=== PATIENT | female | born 1940 | race Caucasian/White ===

== ENCOUNTER 2016-10-03 14:00 | Inpatient (IN) | payer MEDICARE, BC ==
[~2016-10-03] VITALS: Ht 160 cm; Wt 44.7 kg
[2016-10-25] MEDS ORDERED: AMLO5TAB2 PO (09:49)
[2016-10-25] MEDS ORDERED: METO100T PO (09:49)
[2016-10-25] MEDS ORDERED: ASPI-110 PO (09:49)
[2016-10-25] MEDS ORDERED: SIMV40TA PO (09:49)
[2016-10-25] MEDS ORDERED: LISI40TA PO (09:49)
[2016-10-25] MEDS ORDERED: TIMO0.5S30 EACH EYE (09:49)
[2016-10-31] VITALS (8 sets, daily range): BP systolic 108–112; BP diastolic 58–60; PULSE 69–77; RESP 15; TEMP 97.5–97.8; O2SAT 97
[2016-10-31] MEDS ORDERED: CHLORHEXIDINE GLUCONATE 2 % 1 PACK (2 CLOTHS) TOPICAL PRN (12:30)
[2016-10-31] MEDS ORDERED: SODIUM CHLORID 0.9% 500 ML IV PRN (12:30)
[2016-10-31] MEDS ORDERED: INSULIN HUMAN REGULAR 1,000 UNITS/10 ML VIAL SQ PRN (12:30)
[2016-10-31] MEDS ORDERED: POVIDONE IODINE 5% (ANTISEPSIS KIT) 4 APPLICATIONS EACH NARE PRN (12:30)
[2016-10-31] MEDS ORDERED: METOPROLOL TARTRATE 25 MG TAB PO PRN (12:30)
[2016-10-31] MEDS ORDERED: LACTATED RINGER'S 1000 ML IV PRN (12:30)
[2016-10-31] MEDS ORDERED: DEXT 5%-NACL 0.9% 1000 ML INJ 1,000 ML IV SCH (12:45)
[2016-10-31] MEDS ORDERED: ceFAZolin 2 GM PREMIX 50 ML IV SCH (12:45)
[2016-10-31] MEDS ORDERED: METRONIDAZOLE 500 MG/100 ML ISONTONIC SOLN IV SCH (12:45)
--- NOTE | 2016-10-31 13:00 | PD.HP.UP ---
H&P Update Note The Pre-Admit History and Physical Examination regarding the above named patient was reviewed (including, but not limited to, vital signs, heart, lungs, co-morbid conditions), and upon re-examination it is noted that: the patient's condition has not significantly changed since the last examination. Radha Eric MD Oct 31, 2016 13:00
[2016-10-31] MEDS ORDERED: BUPIVACAINE HCL PF 0.25% 30 ML VIAL ONE (13:33)
[2016-10-31] MEDS ORDERED: PROPOFOL 200 MG/20 ML AMP IV ONE (13:53)
[2016-10-31] MEDS ORDERED: ONDANSETRON HCL 4 MG/2 ML VIAL IV PUSH ONE (13:53)
[2016-10-31] MEDS ORDERED: ePHEDrine/NS 25 MG/5 ML SYR IV ONE (13:53)
[2016-10-31] MEDS ORDERED: LACTATED RINGER'S 1000 ML INJ 1,000 ML IV ONE (13:54)
[2016-10-31] MEDS ORDERED: fentaNYL CITRATE 250 MCG/5 ML AMP ONE (14:02)
[2016-10-31] MEDS ORDERED: SUGAMMADEX SODIUM 200 MG/2 ML VIAL IV PUSH ONE ×2 (15:20)
[2016-10-31] MEDS ORDERED: POTASSIUM CHLOR 40 MEQ PREMIX 100 ML IV PRN (15:45)
[2016-10-31] MEDS ORDERED: diphenhydrAMINE HCL 50 MG/ML VIAL IV PRN (15:45)
[2016-10-31] MEDS ORDERED: SODIUM CHLORIDE 0.9% FLUSH 5 ML FLUSH IVF PRN (15:45)
[2016-10-31] MEDS ORDERED: ACETAMINOPHEN 325 MG TAB PO PRN (15:45)
[2016-10-31] MEDS ORDERED: Post-op Orders (for Pharmacy) MISC XX ONE (15:45)
[2016-10-31] MEDS ORDERED: ENALAPRILAT 2.5 MG/2 ML VIAL IV PRN (15:45)
[2016-10-31] MEDS ORDERED: BENZOCAINE 6 MG/MENTHOL 10 MG LOZENGE BUCCAL PRN (15:45)
[2016-10-31] MEDS: PCA - TOTAL MG MORPHINE DELIVERED PER SHIFT SCH ×2 (15:45→22:00)
[2016-10-31] MEDS ORDERED: ACETAMINOPHEN/HYDROcodone 325 MG/5 MG TAB PO PRN ×2 (15:45)
[2016-10-31] MEDS ORDERED: NALOXONE HCL 0.4 MG/ML AMP IV PRN (15:45)
[2016-10-31] MEDS ORDERED: ENALAPRILAT 1.25 MG/ML VIAL IV PRN (15:45)
[2016-10-31] MEDS ORDERED: POTASSIUM CHLOR 20 MEQ PREMIX 100 ML IV PRN (15:45)
[2016-10-31] MEDS ORDERED: MORPHINE SULFATE 30 MG/30 ML PCA IV SCH (15:45)
[2016-10-31] MEDS ORDERED: ONDANSETRON HCL 4 MG/2 ML VIAL IV PRN (15:45)
[2016-10-31] MEDS ORDERED: DO NOT ADM ANY ANTICOAGULANT DRUGS PRN (15:50)
[2016-10-31] MEDS: D5-NS + KCL 20 MEQ INJ 1,000 ML IV SCH ×2 (16:09→22:35)
[2016-10-31] MEDS: KETOROLAC TROMETHAMINE 30 MG/ML (IVP) VIAL IVP SCH ×2 (16:28→22:35)
[2016-10-31 16:30] LABS: AUTOMATED NEUTROPHIL # 7.3 TH/MM3 (1.8-7.7); BASOPHIL % 0.2 % (0.0-2.0); EOSINOPHIL # 0.1 TH/MM3 (0-0.4); EOSINOPHIL % 0.6 % (0.0-4.0); HEMATOCRIT 37.6 % (35.0-46.0); HEMO FLAGS DIFF FINAL; LYMPH % 17.7 % (9.0-44.0); LYMPHOCYTE # 1.8 TH/MM3 (1.0-4.8); MEAN CELL VOLUME 93.9 FL (80.0-100.0); MEAN CORPUSCULAR HEMOGLOBIN 31.4 PG (27.0-34.0); MEAN CORPUSCULAR HGB CONC 33.4 % (32.0-36.0); MONO % 7.7 % (0.0-8.0); NEUT % 73.8 % (16.0-70.0); PLATELET COUNT 261 TH/MM3 (150-450); RED BLOOD COUNT 4.01 MIL/MM3 (4.00-5.30)
[2016-10-31 16:49] LABS: POTASSIUM 3.2 MEQ/L (3.5-5.1)
[2016-10-31] MEDS: SODIUM CHLORIDE 0.9% FLUSH 5 ML FLUSH IVF SCH (20:18)
[2016-10-31] MEDS: metroNIDAZOLE 500 MG INJ 100 ML IV SCH (22:35)
[2016-11-01] VITALS (19 sets, daily range): BP systolic 111–127; BP diastolic 54–66; PULSE 63–77; RESP 15–19; TEMP 96.3–99; O2SAT 95–97
[2016-11-01] MEDS: KETOROLAC TROMETHAMINE 30 MG/ML (IVP) VIAL IVP SCH ×4 (05:26→23:23)
[2016-11-01] MEDS: D5-NS + KCL 20 MEQ INJ 1,000 ML IV SCH ×2 (05:27→11:51)
[2016-11-01] MEDS: metroNIDAZOLE 500 MG INJ 100 ML IV SCH ×2 (05:27→13:59)
[2016-11-01] MEDS: PCA - TOTAL MG MORPHINE DELIVERED PER SHIFT SCH ×3 (06:00→20:19)
[2016-11-01 08:41] LABS: AUTOMATED NEUTROPHIL # 9.8 TH/MM3 (1.8-7.7); BASOPHIL % 0.2 % (0.0-2.0); EOSINOPHIL % 0.2 % (0.0-4.0); HEMATOCRIT 34.3 % (35.0-46.0); HEMO FLAGS DIFF FINAL; LYMPH % 6.7 % (9.0-44.0); LYMPHOCYTE # 0.8 TH/MM3 (1.0-4.8); MEAN CELL VOLUME 92.5 FL (80.0-100.0); MEAN CORPUSCULAR HEMOGLOBIN 31.7 PG (27.0-34.0); MEAN CORPUSCULAR HGB CONC 34.3 % (32.0-36.0); MONO % 7.1 % (0.0-8.0); NEUT % 85.8 % (16.0-70.0); PLATELET COUNT 274 TH/MM3 (150-450); RED BLOOD COUNT 3.71 MIL/MM3 (4.00-5.30); RED CELL DISTRIBUTION WIDTH 12.2 % (11.6-17.2); WHITE BLOOD COUNT 11.4 TH/MM3 (4.0-11.0)
[2016-11-01] MEDS ORDERED: NON-FORMULARY DRUG (Lisinopril 40 MG) PO SCH (09:00)
[2016-11-01] MEDS: SODIUM CHLORIDE 0.9% FLUSH 5 ML FLUSH IVF SCH ×2 (09:00→20:18)
[2016-11-01 09:18] LABS: BICARBONATE 25.2 MEQ/L (21.0-32.0); POTASSIUM 3.6 MEQ/L (3.5-5.1)
[2016-11-01] MEDS: LISINOPRIL 20 MG TAB PO SCH (09:23)
[2016-11-01] MEDS: amLODIPine BESYLATE 5 MG TAB PO SCH (09:23)
[2016-11-01] MEDS: PANTOPRAZOLE SODIUM 40 MG VIAL IVP SCH (09:23)
[2016-11-01] MEDS: METOPROLOL TARTRATE 100 MG TAB PO SCH (09:23)
--- NOTE | 2016-11-01 12:02 | MP ---
cc: DAVE FRYE M.D. DATE OF SURGERY: 10/31/2016 PREOPERATIVE DIAGNOSIS: Rectal prolapse. POSTOPERATIVE DIAGNOSIS Rectal prolapse. PROCEDURE Laparoscopic lysis of adhesions. Laparoscopic assisted rectopexy SURGEON Hernesto [employer] OUT: [place] ANESTHESIA General per ET tube ESTIMATED BLOOD LOSS 50 cc OPERATIVE INDICATIONS The patient is a 76-year-old female with symptomatic rectal prolapse. OPERATIVE COURSE: The patient was brought to the operating room and placed in the supine position. After induction of general anesthesia, all bony prominences were padded. The skin of the anterior abdominal wall was then prepped and draped in the usual sterile fashion. A site was then chosen for the camera, being located 2 cm to the right and 2 cm below the umbilicus. A #5 port was placed at this location under direct vision, using the laparoscope. CO2 insufflation was then undertaken and a brief abdominal survey was performed, with nothing noted that would preclude the laparoscopic approach. A second trocar was placed just inside the right anterior superior iliac spine, also a #5 , and a third trocar was placed mirror image to the first, on the left side. The patient was hydroplaned with head down and was immediately noted to have some adhesions of the small bowel to the vaginal cuff. These were carefully dissected free using electrocautery, and additionally some of the small bowel was dissected free from the sigmoid colon. Eventually I was able to retract the small bowel up and out of the pelvis and had a nice view of the very redundant sigmoid colon. Her rectosigmoid was then gently retracted to the left and the peritoneum was scored and opened. The presacral space was then entered. Dissection was continued from the sacrum down posteriorly down to the mid rectum and up and out the right side and somewhat to the left. The attachments of the rectum to the left pelvic sidewall wall were then dissected free, and the peritoneum was opened on that side, meeting our previous dissection. With this, we had a nice dissection of the rectum with mesentery on each side, to bring up to the sacral promontory. The sacral promontory was cleared of tissue, using electrocautery. Grasping the mesentery on either side of the rectum, the rectum came up nicely to the sacral promontory without tension but with a good, nice firm rectopexy. Hemostasis was obtained with electrocautery, and we moved on to the open portion of the procedure. A 12-15 cm transverse incision was made in the suprapubic area ,along her previous incision, and using electrocautery, dissection was carried down to the fascia of the anterior abdominal wall. The medial fibers of the rectus abdominis muscle were then divided, and the posterior fascia/peritoneum was then divided the length of the skin incision. Some additional fibrofatty tissues overlying the sacrum were dissected free. Starting on left side, a 2-0 Prolene suture was placed through the peritoneum/mesentery to the left of the rectum, then through the sacral promontory, and back out through the peritoneum. This was held but not sutured. A second suture of 2-0 Vicryl was placed just slightly more distal on the peritoneum in the same fashion. These were held but not tied. Mirror image sutures were then placed on the right side of the rectal mesentery and through the sacral promontory as well. These were gently pulled down tight and the rectum lay nicely without tension but with a good amount of structure. All sutures were then secured, and the rectum lay in a nice orientation without tension and without any evidence of prolapse. All dissection beds were examined with no sign of any significant bleeding. The posterior fascia at the suprapubic incision was closed in running fashion using #1 PDS and the anterior fascia was closed in running fashion using #1 PDS. The wounds were then copiously irrigated with warm normal saline. The skin at the suprapubic incision was closed in a running Subcuticular fashion using 3-0 Vicryl, and the trocar sites were closed in an interrupted subcuticular fashion , using 3-0 Vicryl. Steri-Strips and sterile dressing was applied. All sponge, needle and instrument counts were correct and the patient was returned to the post anesthesia care unit in stable condition. MD ALPESH Dumont/darrell /3:39 PM /11:44 AM EMILY
--- NOTE | 2016-11-01 14:37 | HHI.PR ---
Subjective Remarks POD#1 s/p lap assisted rectopexy seems comfortable Objective Vital Signs Date Time Temp Pulse Resp B/P Pulse Ox O2 Delivery O2 Flow Rate FiO2 11/01/16 14:00 65 11/01/16 14:00 19 11/01/16 13:16 19 11/01/16 13:00 68 11/01/16 12:00 63 11/01/16 11:00 68 11/01/16 11:00 98.5 71 16 127/64 96 11/01/16 10:00 74 11/01/16 09:00 74 11/01/16 08:00 95 21 11/01/16 08:00 98.9 75 19 121/66 97 11/01/16 08:00 72 11/01/16 07:00 75 11/01/16 06:00 74 11/01/16 06:00 15 11/01/16 05:00 72 11/01/16 04:05 70 11/01/16 03:11 97.5 77 15 111/58 97 11/01/16 03:11 72 11/01/16 02:00 72 11/01/16 01:30 75 11/01/16 00:00 70 10/31/16 23:27 97.5 77 15 108/60 97 10/31/16 23:00 70 10/31/16 22:00 72 10/31/16 22:00 14 10/31/16 21:00 70 10/31/16 20:51 97 21 10/31/16 20:00 69 10/31/16 19:21 97.8 69 15 112/58 97 10/31/16 19:00 73 10/31/16 17:45 97.2 72 14 117/59 96 Room Air 10/31/16 17:00 75 13 128/61 100 Room Air 10/31/16 16:45 68 13 124/59 100 Nasal Cannula 2 10/31/16 16:30 97.3 67 13 124/62 100 Nasal Cannula 2 10/31/16 16:22 15 10/31/16 16:15 68 13 125/61 100 Nasal Cannula 2 10/31/16 16:00 68 12 125/60 100 Nasal Cannula 2 10/31/16 15:48 96.8 72 21 127/59 100 Nasal Cannula 2 I/O 6/5/17 10/31/16 10/31/16 11/01/16 11/01/16 11/01/16 07:00 15:00 23:00 07:00 15:00 23:00 Intake Total 1322 ml 2555 ml Output Total 945 ml 925 ml Balance 377 ml 1630 ml Intake Oral 0 ml 480 ml IV Total 322 ml 2075 ml Other 1000 ml Output Urine Total 925 ml 925 ml Estimated Blood Loss 20 ml # Bowel Movements 0 Result Diagram: 11/01/16 0642 11/01/16 06 Objective Remarks Abdomen soft, nondistended Dressing c/d/i Assessment and Plan Assessment and Plan Advance diet Mobilize D/C Radha Mccracken MD Nov 01, 2016 14:37
[2016-11-01] MEDS: HEPARIN SODIUM - SQ 10,000 UNITS/ML VIAL SQ SCH (15:21)
[2016-11-02] VITALS: BP 125/58; PULSE 73; RESP 16; TEMP 97.3; O2SAT 95
[2016-11-02] MEDS: HEPARIN SODIUM - SQ 10,000 UNITS/ML VIAL SQ SCH (01:48)
[2016-11-02] MEDS: D5-NS + KCL 20 MEQ INJ 1,000 ML IV SCH (01:48)
[2016-11-02] MEDS: PCA - TOTAL MG MORPHINE DELIVERED PER SHIFT SCH (05:43)
[2016-11-02] MEDS: KETOROLAC TROMETHAMINE 30 MG/ML (IVP) VIAL IVP SCH (05:43)
[2016-11-02 05:57] LABS: AUTOMATED NEUTROPHIL # 4.9 TH/MM3 (1.8-7.7); BASOPHIL % 0.4 % (0.0-2.0); EOSINOPHIL # 0.1 TH/MM3 (0-0.4); EOSINOPHIL % 0.9 % (0.0-4.0); HEMATOCRIT 28.6 % (35.0-46.0); HEMO FLAGS DIFF FINAL; LYMPH % 22.7 % (9.0-44.0); LYMPHOCYTE # 1.6 TH/MM3 (1.0-4.8); MEAN CELL VOLUME 91.8 FL (80.0-100.0); MEAN CORPUSCULAR HEMOGLOBIN 31.8 PG (27.0-34.0); MEAN CORPUSCULAR HGB CONC 34.7 % (32.0-36.0); MONO % 8.2 % (0.0-8.0); NEUT % 67.8 % (16.0-70.0); PLATELET COUNT 241 TH/MM3 (150-450); RED BLOOD COUNT 3.12 MIL/MM3 (4.00-5.30); WHITE BLOOD COUNT 7.3 TH/MM3 (4.0-11.0)
[2016-11-02 06:23] LABS: BICARBONATE 27.6 MEQ/L (21.0-32.0); POTASSIUM 3.6 MEQ/L (3.5-5.1)
[2016-11-02] MEDS: amLODIPine BESYLATE 5 MG TAB PO SCH (07:29)
[2016-11-02] MEDS: SODIUM CHLORIDE 0.9% FLUSH 5 ML FLUSH IVF SCH (07:30)
[2016-11-02] MEDS: PANTOPRAZOLE SODIUM 40 MG VIAL IVP SCH (07:30)
[2016-11-02] MEDS: LISINOPRIL 20 MG TAB PO SCH (07:31)
[2016-11-02] MEDS: METOPROLOL TARTRATE 100 MG TAB PO SCH (07:32)
[2016-11-02 08:00] VITALS: BP 118/56; PULSE 79; RESP 16; TEMP 98.5; O2SAT 94
--- NOTE | 2016-11-02 08:21 | HHI.PR ---
Subjective Remarks POD#2 s/p lap assisted rectopexy seems comfortable tolerating diet per daughter Objective Vital Signs Date Time Temp Pulse Resp B/P Pulse Ox O2 Delivery O2 Flow Rate FiO2 11/02/16 07:12 18 11/02/16 05:43 18 11/02/16 00:00 97.3 73 16 125/58 95 11/01/16 20:19 18 11/01/16 20:00 96.3 74 18 111/56 95 11/01/16 15:45 97.6 76 17 120/59 96 11/01/16 15:18 99.0 76 17 112/54 97 11/01/16 15:00 74 11/01/16 14:00 65 11/01/16 14:00 19 11/01/16 13:00 68 11/01/16 12:00 63 11/01/16 11:00 68 11/01/16 11:00 98.5 71 16 127/64 96 11/01/16 10:00 74 11/01/16 09:00 74 I/O 11/01/16 11/01/16 11/01/16 11/02/16 11/02/16 11/02/16 07:00 15:00 23:00 07:00 15:00 23:00 Intake Total 2555 ml 1564 ml 240 ml Output Total 925 ml 1500 ml Balance 1630 ml 64 ml 240 ml Intake Oral 480 ml 360 ml 240 ml IV Total 2075 ml 1204 ml Output Urine Total 925 ml 1500 ml # Voids 2 # Bowel Movements 0 0 Result Diagram: 11/02/16 0410 11/02/16 0410 Objective Remarks Abdomen soft, nondistended Wound clean Assessment and Plan Assessment and Plan Home today Followup with me 3 weeks Radha Eric MD Nov 02, 2016 08:21
[2016-11-02] MEDS ORDERED: HYDR-3516 PO (08:23)
[2016-11-02 08:39] VITALS: O2SAT 98
--- NOTE | 2016-11-06 09:00 | MD ---
cc: DAVE FRYE M.D., PATRICIA ADMISSION DATE: 10/31/2016 DISCHARGE DATE: 11/02/2016 ADMISSION DIAGNOSIS 1. Rectal prolapse 2. Aphasia DISCHARGE DIAGNOSIS Laparoscopic-assisted rectopexy. HOSPITAL COURSE The patient is a 76-year-old female with severe aphasia who has symptomatic rectal prolapse. She was admitted on October 31, 2016, after an outpatient bowel prep. She was taken to the operating room where she underwent the above-named procedure. Postoperatively she did well with rapid return of bowel and bladder function. She was discharged to home on November 02, 2016 with instructions to follow up with myself in the office. MD ALPESH Dumont/FALGUNI /8:26 AM /4:29 AM EMILY
== END 2016-11-02 09:55 | disposition home or self-care (01) | DRG 331 ==
LOC: HSDI 10-31 12:01 → EDUNIT# 10-31 14:00 → EDSTATUS 10-31 14:00 → HCIN 10-31 17:53 → N07A 11-01 15:38
PROVIDERS: ADMIT Colon & Rectal Surgery; ATTEND Colon & Rectal Surgery
PROC: 0DSP4ZZ Reposition Rectum, Percutaneous Endoscopic Approach (ICD-10-PCS; principal; 2016-10-31 14:00)
DX: K62.3 Rectal prolapse (principal)
CPT/HCPCS: 80048; 85025; 86850; 86900; 86901; 94150; C1765; C9113; J0690; J1644; J1885; J2270; J2405; J3010; J3480; J7120

== ENCOUNTER → 2016-10-25 | Outpatient (CLI) | payer MEDICARE, BC ==
[~2016-10-25] MED LIST: AMLO5TAB2 PO; ASPI-110 PO; HYDR-3516 PO; LISI40TA PO; METO100T PO; SIMV40TA PO; TIMO0.5S30 EACH EYE
[2016-10-25 09:56] LABS: BASOPHIL % 0.5 % (0.0-2.0); EOSINOPHIL # 0.2 TH/MM3 (0-0.4); HEMATOCRIT 41.3 % (35.0-46.0); HEMO FLAGS DIFF FINAL; LYMPH % 22.8 % (9.0-44.0); MEAN CELL VOLUME 93.4 FL (80.0-100.0); MEAN CORPUSCULAR HEMOGLOBIN 30.8 PG (27.0-34.0); MEAN CORPUSCULAR HGB CONC 32.9 % (32.0-36.0); MONO % 7.2 % (0.0-8.0); NEUT % 67.5 % (16.0-70.0); PLATELET COUNT 316 TH/MM3 (150-450); RED BLOOD COUNT 4.42 MIL/MM3 (4.00-5.30); RED CELL DISTRIBUTION WIDTH 12.2 % (11.6-17.2); WHITE BLOOD COUNT 8.8 TH/MM3 (4.0-11.0)
[2016-10-25 10:06] LABS: BACTERIA, URINE RARE /hpf; BLOOD, URINE NEG (NEG); COMMENT (UR) CULT NOT INDICATED; CULTURE IF INDICATED CULT NOT INDICATED; GLUCOSE,URINE NEG (NEG); KETONE, URINE NEG (NEG); MUCUS URINE FEW /lpf (OCC); NITRITE,URINE NEG (NEG); SQUAMOUS EPITHELIAL CELL URINE <1 /hpf (0-5); URINE COLOR YELLOW (YELLW/STRAW)
[2016-10-25 10:07] LABS: APTT (PATIENT) 26.7 SEC (24.3-30.1); INTERNATIONAL NORMALIZED RATIO 0.9 RATIO; PROTHROMBIN TIME - PATIENT 10.1 SEC (9.8-11.6)
[2016-10-25 10:47] LABS: ALKALINE PHOSPHATASE 116 U/L (45-117); ALT (GPT) 23 U/L (10-53); ANION GAP 10 MEQ/L (5-15); AST (GOT) 14 U/L (15-37); BLOOD UREA NITROGEN 14 MG/DL (7-18); CHLORIDE 95 MEQ/L (98-107); GLOMERULAR FILTRATION RATE 105 ML/MIN (>89); GLUCOSE,FASTING 106 MG/DL (74-99); SODIUM (NA) 133 MEQ/L (136-145); TOTAL BILIRUBIN ADULT 0.4 MG/DL (0.2-1.0)
--- NOTE | 2016-10-25 11:44 | RADRPT ---
EXAM DATE/TIME: 10/25/2016 10:18 [place] COMPARISON: No previous studies available for comparison. INDICATIONS : Evaluate for pneumonia, pneumothorax, and communicable disease. Preop. MEDICAL HISTORY : None. SURGICAL HISTORY : None. ENCOUNTER: Initial ACUITY: 1 day PAIN SCORE: 0/10 LOCATION: Bilateral chest FINDINGS: PA and lateral views of the chest demonstrate a normal-sized cardiac silhouette. There is no effusion , consolidation, or pneumothorax. There is a nipple shadow overlying the right lower lung zone. The b ones and soft tissues demonstrate no acute abnormality. CONCLUSION: No acute cardiopulmonary abnormality is identified. Dominguez Marie MD on October 25, 2016 at 11:42 Board Certified Radiologist. This report was verified electronically.
== END ==
LOC: CPRE 08:32
PROVIDERS: ATTEND Colon & Rectal Surgery
DX: Z01.811 Encounter for preprocedural respiratory examination (principal); Z01.812 Encounter for preprocedural laboratory examination; K62.3 Rectal prolapse
CPT/HCPCS: 36415; 71020; 80053; 81001; 85025; 85610; 85730